=== PATIENT | male | born 1960 | race Caucasian/White ===

== ENCOUNTER 2019-04-29 11:14 | Emergency (ER) | payer BC ==
[2019-04-29 11:25] VITALS: BMI 26.6
[2019-04-29] MEDS ORDERED: KETOROLAC TROMETHAMINE 60 MG/2 ML VIAL IM ONE (11:51)
[2019-04-29] MEDS ORDERED: METOCLOPRAMIDE HCL INJECTION 10 MG/2 ML VIAL IM ONE (11:51)
[2019-04-29] MEDS ORDERED: METOCLOPRAMIDE HCL INJECTION 10 MG/2 ML VIAL ONE (12:03)
[2019-04-29] MEDS ORDERED: KETOROLAC TROMETHAMINE 60 MG/2 ML VIAL ONE (12:04)
--- NOTE | 2019-04-29 12:04 | PDOC ---
History of Present Illness - General Chief Complaint: Headache Stated Complaint: HEADACHE Time Seen by Provider: 04/29/19 11:34 History Source: Patient Exam Limitations: No Limitations - History of Present Illness Initial Comments: 04/29/19 13:08 58-year-old male presents to the emergency room with complaints of intermittent throbbing temporal and forehead pressure for the past 8 months. Patient states is followed by Dr. Chowdhury who has him on magnesium along with Motrin with no improvement. Patient states had an MRI done approximately 2 weeks ago which showed no significant findings patient states attempted to get an appoint with Dr. Khalil today but could not and so decided come to the ER for further evaluation. Timing/Duration: reports: episodic Severity: Yes: moderate Associated Symptoms: reports: other (headache) Past History - Travel Traveled outside of the country in the last 30 days: No Close contact w/someone who was outside of country & ill: No - Past Medical History Home Medications: Ambulatory Orders Erenumab-Aooe [Aimovig Autoinjector] 1 dose SQ ASDIR 04/29/19 Ibuprofen 1 tab PO TID PRN 04/29/19 Magnesium Oxide [Magnesium] 250 mg PO DAILY 04/29/19 COPD: No - Psycho Social/Smoking Cessation Hx Smoking History: Never smoked Patient Lives Alone: No Lives with/in: spouse/SO Review of Systems - Review of Systems Able to Perform ROS?: Yes Constitutional: No: Symptoms Reported HEENTM: No: Symptoms Reported Respiratory: No: Symptoms reported Cardiac (ROS): No: Symptoms Reported ABD/GI: No: Symptoms Reported : No: Symptoms Reported Musculoskeletal: No: Symptoms Reported Integumentary: No: Symptoms Reported Neurological: Yes: Headache. No: Numbness, Weakness, Dizziness Endocrine: No: Symptoms Reported Hematologic/Lymphatic: No: Symptoms Reported *Physical Exam - Vital Signs Last Vital Signs Temp Pulse Resp BP Pulse Ox 98 F 68 16 150/86 98 04/29/19 11:24 04/29/19 11:24 04/29/19 11:24 04/29/19 11:24 04/29/19 11:24 - Physical Exam General Appearance: Yes: Nourished, Appropriately Dressed. No: Apparent Distress HEENT: positive: EOMI, AARON, TMs Normal, Pharynx Normal. negative: Pale Conjunctivae Neck: positive: Supple Respiratory/Chest: positive: Lungs Clear, Normal Breath Sounds. negative: Respiratory Distress, Accessory Muscle Use Cardiovascular: positive: Regular Rhythm, Regular Rate. negative: Murmur Gastrointestinal/Abdominal: positive: Soft. negative: Tenderness Extremity: positive: Normal Inspection Integumentary: positive: Normal Color, Warm, Moist Neurologic: positive: Normal Mood/Affect, Motor Strength 5/5 (ambulatory) Medical Decision Making - Medical Decision Making 04/29/19 13:08 Chief complaint: Intermittent throbbing pressure to his forehead and catholic area for the past 5 months unrelieved with magnesium and Motrin patient states had MRI done in the [place] 2 weeks ago and out patient facility ordered by Dr. Chowdhury but was told by the neurologist it was normal. 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 Patient has no other complaints Exam: No neurofocal deficits vital signs stable Plan: IM Toradol and Reglan. if relieved, I will discharge home with Fioricet 04/29/19 13:37 Patient states feeling much better and wants to go home Discharge - Discharge Information Problems reviewed: Yes Clinical Impression/Diagnosis: Headache Condition: Improved Disposition: HOME - Follow up/Referral Referrals: Tobias Bo MD [Staff Physician] - - Patient Discharge Instructions Patient Printed Discharge Instructions: DI for Headache Additional Instructions: Take Fioricet as needed for headache. Please also follow-up with neurologist. Print Language: GREEK - Post Discharge Activity
[2019-04-29 12:26] VITALS: TEMP 98
--- NOTE | 2019-04-29 13:14 | PDOC ---
*Physical Exam - Vital Signs Last Vital Signs Temp Pulse Resp BP Pulse Ox 98.0 F 72 20 143/80 100 04/29/19 12:25 04/29/19 12:25 04/29/19 12:25 04/29/19 12:25 04/29/19 12:25 Medical Decision Making - Medical Decision Making 04/29/19 13:14 Agree with plan per SANJUANITA Del Valle Mr. Jael Barker is a 58 yo M presenting with a complaint of intermittent throbbing temporal and forehead pressure for the past 8 months. He is seen by Neurology, is on magnesium and Motrin with no improvement. Pt given Toradol and Reglan Pt improved Agree with history, physician and plan per SANJUANITA Del Valle D/c to home Follow up with Neuro Discharge - Discharge Information Problems reviewed: Yes Clinical Impression/Diagnosis: Headache Qualifiers: Headache type: unspecified Headache chronicity pattern: unspecified pattern Intractability: not intractable Qualified Code(s): R51 - Headache Condition: Improved Disposition: HOME - Additional Discharge Information Prescriptions: Acetaminophen/Caffeine/Butalb [Fioricet -] 1 tab PO TID PRN #21 tablet MDD 3 PRN Reason: Headache - Follow up/Referral Referrals: Ynoas Clemons [Primary Care Provider] - Tobias Bo MD [Staff Physician] - - Patient Discharge Instructions Patient Printed Discharge Instructions: DI for Headache Additional Instructions: Take Fioricet as needed for headache. Please also follow-up with neurologist. Print Language: LIBERIAN - Post Discharge Activity
[2019-04-29 13:46] VITALS: BP 129/87; PULSE 64
== END 2019-04-29 13:46 | disposition home or self-care (01) ==
LOC: JER 11:14
PROC: 3E0233Z Introduction of Anti-inflammatory into Muscle, Percutaneous Approach (ICD-10-PCS; principal; 2019-04-29)
PROC: 3E023GC Introduction of Other Therapeutic Substance into Muscle, Percutaneous Approach (ICD-10-PCS; 2019-04-29)
DX: R51 Headache (principal)
CPT/HCPCS: 99282-25

== ENCOUNTER 2019-09-13 16:21 | Emergency (ER) | payer BC ==
[2019-09-13 16:30] VITALS: BMI 26.6
[2019-09-13] MEDS ORDERED: SODIUM CHLORIDE 1,000 ML IV STA (16:30)
[2019-09-13] MEDS ORDERED: ACETAMINOPHEN 1000 MG/100 ML VIAL (NON FORMULARY) IVPB ONE (16:30)
[2019-09-13] MEDS ORDERED: METOCLOPRAMIDE HCL INJECTION 10 MG/2 ML VIAL IVPB ONE (16:30)
--- NOTE | 2019-09-13 16:31 | PDOC ---
Rapid Medical Evaluation Time Seen by Provider: 09/13/19 16:28 Medical Evaluation: Allergies Allergy/AdvReac Type Severity Reaction Status Date / Time No Known Allergies Allergy Verified 09/13/19 16:26 09/13/19 16:28 Pt presents for evaluation for a headache since Thursday. He states the pain has gradually gotten worse since then. Exam: pt appears uncomfortable, tearful. No gross neurodeficits. Able to touch chin to chest Orders: Labs, head CT, meds Pt to proceed to the ER for further evaluation Discharge Disposition - Diagnosis Headache Qualifiers: Headache type: unspecified Headache chronicity pattern: acute headache Intractability: not intractable Qualified Code(s): R51 - Headache - Referrals - Patient Instructions - Post Discharge Activity
[2019-09-13] MEDS ORDERED: METOCLOPRAMIDE HCL INJECTION 10 MG/2 ML VIAL ONE (17:40)
[2019-09-13] MEDS ORDERED: ACETAMINOPHEN INJECTION 100 ML IVPB ONE (17:40)
--- NOTE | 2019-09-13 18:04 | PDOC ---
Documentation entered by Nury Santos SCRIBE, acting as scribe for Alexandria Gillespie MD. Alexandria Gillespie MD: This documentation has been prepared by the Tom corral Nirvannie, SCRIBE, under my direction and personally reviewed by me in its entirety. I confirm that the documentation accurately reflects all work, treatment, procedures, and medical decision making performed by me. Attending Attestation - Resident Resident Name: Isaac Durand - ED Attending Attestation I have performed the following: I have examined & evaluated the patient, The case was reviewed & discussed with the resident, I agree w/resident's findings & plan, Exceptions are as noted - HPI HPI: 09/13/19 18:49 The patient is a 58 year old male, with no significant past medical history, who presents to the emergency department with 3 days of a progressively worsening waxing and waning headache. He denies any recent chest pain or shortness of breath. Allergies: NKDA - Physicial Exam PE: 09/13/19 20:22 Alert and conversant Swedish-speaking 58-year-old male presents with intermittent worsening headaches over several months Head is normocephalic and atraumatic Eyes pupils are equal reactive to light and accommodation Neck no JVD, supple Lungs clear to auscultation bilaterally CVS regular rate and rhythm S1-S2 Abdomen nontender Skin warm and dry Extremities full range of motion, motor strength 5 out of 5 bilaterally Neuro alert and oriented x3, ambulatory - Medical Decision Making 09/13/19 20:58 CAT scan of the head without contrast showed -Multifocal chronic sinusitis. - There was a focal dehiscence of the posterior wall of the left sphenoid sinus. Dr. Chance Adams was contacted and recommended further imaging studies and MRI was ordered 09/14/19 00:05 MRI Brain: IMPRESSION: Extensive mucosal thickening and inspissated mucus seen bilaterally throughout the paranasal sinuses. Complete filling of the left sphenoid sinus possibly from trapping in the sphenoethmoid ostium. The study is otherwise unremarkable. Despite these extensive inflammatory changes within the sinuses, there is no clear evidence of penetration beyond the mucosal surfaces of the sinuses into the surrounding soft tissues of the orbits, or through the cribriform plates, through the posterior wall of the frontal sinuses, or involvement of the cavernous sinuses. No evidence of osteolytic disease or osteomyelitis. No evidence of dural enhancement, or any evidence of epidural or subdural inflammation, subarachnoid leptomeningeal enhancement or of an intra-axial enhancing lesion within the brain. Read by: Duke Bourgeois MD. 09/14/19 00:[address] Chance Adams and the pt miladys be placed on antibiotics , flonase and will be referred to ENT
--- NOTE | 2019-09-13 18:37 | PDOC ---
History of Present Illness - General Chief Complaint: Headache Stated Complaint: HEADACHE Time Seen by Provider: 09/13/19 16:28 History Source: Patient Exam Limitations: No Limitations - History of Present Illness Initial Comments: 09/13/19 18:18 58 yo male no sig pmh presents to the ED for a worsening severe DUMONT for 3 days. Pt states he has a waxing and waning DUMONT over the past 5 months. DUMONT is located bilateral frontal region, worsening over the past 3 days, severe and described as sharp. Denies associated symptoms such as N/V/F/C, weakness or sensory deficits on 1 side of his body, congestion, confusion, neck pain/stiffness, changes in vision, CP, SOB, abdominal pain, back pain, changes in bowel or bladder habits Past History - Past Medical History Allergies/Adverse Reactions: Allergies Allergy/AdvReac Type Severity Reaction Status Date / Time No Known Allergies Allergy Verified 09/13/19 16:26 Home Medications: Ambulatory Orders Acetaminophen/Caffeine/Butalb [Fioricet -] 1 tab PO TID PRN #21 tablet MDD 3 11/12 Erenumab-Aooe [Aimovig Autoinjector] 1 dose SQ ASDIR 04/29/19 Ibuprofen 1 tab PO TID PRN 04/29/19 Magnesium Oxide [Magnesium] 250 mg PO DAILY 04/29/19 COPD: No Other medical history: headache, - Immunization History Immunization Up to Date: No - Psycho Social/Smoking Cessation Hx Smoking History: Never smoked Have you smoked in the past 12 months: No Hx Alcohol Use: No Drug/Substance Use Hx: No Review of Systems - Review of Systems Constitutional: Yes: See HPI HEENTM: Yes: See HPI Respiratory: Yes: See HPI Cardiac (ROS): Yes: See HPI ABD/GI: Yes: See HPI : Yes: See HPI Musculoskeletal: Yes: See HPI Integumentary: Yes: See HPI Neurological: Yes: See HPI *Physical Exam - Vital Signs Last Vital Signs Temp Pulse Resp BP Pulse Ox 98.4 F 78 20 149/87 100 09/13/19 16:26 09/13/19 17:45 09/13/19 17:45 09/13/19 17:45 09/13/19 17:45 - Physical Exam General Appearance: Yes: Nourished, Appropriately Dressed HEENT: positive: EOMI, AARON, Normal ENT Inspection, TMs Normal Neck: positive: Supple. negative: Rigid, Carotid bruit, Tender lateral, Tender midline Respiratory/Chest: positive: Lungs Clear, Normal Breath Sounds. negative: Respiratory Distress, Accessory Muscle Use, Crackles, Rales, Rhonchi, Stridor, Wheezing Cardiovascular: positive: Regular Rhythm, Regular Rate, S1, S2. negative: Edema , JVD, Murmur Vascular Pulses: Dorsalis-Pedis (R): 4+, Doralis-Pedis (L): 4+ Gastrointestinal/Abdominal: positive: Flat, Soft. 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 Ambulates with normal gait). negative: Facial Droop, Numbness, Sensory Deficit, Finger to Nose (normal), Confused ED Treatment Course - LABORATORY CBC & Chemistry Diagram: 09/13/19 17:45 09/13/19 17:45 - Medications Given in the ED: ED Medications Discontinued Medications Generic Name Dose Route Start Last Admin Trade Name Prashanthq PRN Reason Stop Dose Admin Diphenhydramine HCl 12.5 mg 09/13/19 16:30 09/13/19 18:03 Benadryl Injection - IVPB 09/13/19 16:31 12.5 mg ONCE ONE Administration Sodium Chloride 1,000 mls @ 1,000 mls/hr 09/13/19 16:30 09/13/19 17:45 Normal Saline - IV 09/13/19 17:29 1,000 mls/hr ASDIR STA Administration Metoclopramide HCl 10 mg 09/13/19 16:30 09/13/19 17:45 Reglan Injection - IVPB 09/13/19 16:31 10 mg ONCE ONE Administration Medical Decision Making - Medical Decision Making 09/13/19 19:24 58 yo male no sig pmh presents to the ED for a worsening severe DUMONT for 3 days. Pt states he has a waxing and waning DUMONT over the past 5 months. DUMONT is located bilateral frontal region, worsening over the past 3 days, severe and described as sharp. Denies associated symptoms such as N/V/F/C, weakness or sensory deficits on 1 side of his body, congestion, confusion, neck pain/stiffness, changes in vision, CP, SOB, abdominal pain, back pain, changes in bowel or bladder habits vitals WNL Head CT shows likely chronic sinusitis with focal dehiscence into sphenoid bone. Discussed case with ENT Dr. Adams, he reviewed images and concerned for mass/infection extending into the brain. Recommends CT sinus with contrast and MRI Sinus with contrast (order will be MRI orbits due to no sinus protocol) . Dr. Adams requests a call back with MRI and CT report for further care and guidance S/O to night team for labs and follow up imaging along with disposition Discharge - Discharge Information Problems reviewed: Yes Clinical Impression/Diagnosis: Headache Qualifiers: Headache type: unspecified Headache chronicity pattern: acute headache Intractability: not intractable Qualified Code(s): R51 - Headache - Follow up/Referral - Patient Discharge Instructions - Post Discharge Activity
[2019-09-13 18:40] LABS: BASO % 0.8 % (0-2.0); EOS % 2.4 % (0-4.5); HEMATOCRIT 47.3 % (35.4-49); HEMOGLOBIN 16.1 GM/dL (11.7-16.9); LYMPH % 34.1 % (8-40); MCHC 34.1 g/dl (32.0-35.9); MEAN PLT VOLUME 9.5 fl (7.5-11.1); MONO % 7.8 % (3.8-10.2); NEUT % 54.9 % (42.8-82.8); PLATELET COUNT 213 K/MM3 (134-434); RBC 5.37 M/mm3 (4.00-5.60); RDW 12.9 % (11.9-15.9); WHITE BLOOD COUNT 5.8 K/mm3 (4.0-10.0)
[2019-09-13 18:51] LABS: INR 0.98 (0.83-1.09); PROTHROMBIN TIME (PATIENT) 11.6 SEC (9.7-13.0)
[2019-09-13 19:12] LABS: BILIRUBIN,TOTAL 1.2 mg/dL (0.2-1); BLOOD UREA NITROGEN 10.7 mg/dL (7-18); CALCIUM 9.2 mg/dL (8.5-10.1); CREATININE 0.9 mg/dL (0.55-1.3); POTASSIUM 3.8 mmol/L (3.5-5.1); TOT PROT 7.3 g/dl (6.4-8.2)
--- NOTE | 2019-09-13 20:38 | PDOC ---
*Physical Exam - Vital Signs Last Vital Signs Temp Pulse Resp BP Pulse Ox 98.4 F 78 20 149/87 100 09/13/19 16:26 09/13/19 17:45 18 17:45 09/13/19 17:45 09/13/19 17:45 ED Treatment Course - LABORATORY CBC & Chemistry Diagram: 09/13/19 17:45 09/13/19 17:45 - ADDITIONAL ORDERS Additional order review: Laboratory Results 09/13/19 09/13/19 17:45 17:45 PT with INR 11.60 INR 0.98 Sodium 135 L Potassium 3.8 Chloride 102 Carbon Dioxide 25 Anion Gap 8 BUN 10.7 Creatinine 0.9 Est GFR (CKD-EPI)AfAm 110.27 Est GFR (CKD-EPI)NonAf 95.14 Random Glucose 120 H Calcium 9.2 Total Bilirubin 1.2 H AST 22 ALT 20 Alkaline Phosphatase 97 Total Protein 7.3 Albumin 4.0 09/13/19 17:45 RBC 5.37 MCV 88.0 MCHC 34.1 RDW 12.9 MPV 9.5 Neutrophils % 54.9 Lymphocytes % 34.1 Monocytes % 7.8 Eosinophils % 2.4 Basophils % 0.8 - Medications Given in the ED: ED Medications Discontinued Medications Generic Name Dose Route Start Last Admin Trade Name Freq PRN Reason Stop Dose Admin Acetaminophen 1,000 mg 09/13/19 16:30 09/13/19 18:20 Ofirmev Injection - IVPB 09/13/19 16:31 1,000 mg ONCE ONE Administration Diphenhydramine HCl 12.5 mg 09/13/19 16:30 09/13/19 18:03 Benadryl Injection - IVPB 09/13/19 16:31 12.5 mg ONCE ONE Administration Sodium Chloride 1,000 mls @ 1,000 mls/hr 09/13/19 16:30 18 17:45 Normal Saline - IV 09/13/19 17:29 1,000 mls/hr ASDIR STA Administration Metoclopramide HCl 10 mg 09/13/19 16:30 18 17:45 Reglan Injection - IVPB 09/13/19 16:31 10 mg ONCE ONE Administration Medical Decision Making - Medical Decision Making Patient signed out by Dr. Durand 58 yo male no sig pmh presents to the ED for a worsening severe DUMONT for [address] head with concerning findings : " Version Patient Name: Rajwinder Luther : 1960 ID: [id number] Study Date: 13-Sep-2019 16:53 Rachel Hinkle Name: RAJWINDER LUTHER DEPARTMENT OF RADIOLOGY Phys: Indu Martínez LEONARDO : 1960 Age: 58 Sex: M [facility] Acct: [id number] Loc: [address] Exam Date: 09/13/19 Status: PRE ER [place] [address] Unit Number: [id number] EXAM#: TYPE/EXAM: RESULT: [id number] CT/HEAD CT WITHOUT CONTRAST Cranial CT without contrast Clinical information: headache, evaluate for bleed Multiplanar imaging was performed. Intravenous contrast was not administered. No prior imaging studies are available at this facility for direct comparison. No intraparenchymal hemorrhage is seen. There is no CT evidence of acute subarachnoid hemorrhage. Correlate clinically. No extra-axial fluid collection is noted. There is no obvious mass lesion on noncontrast imaging. No discrete infarct is noted with the limitations of CT. Several punctate bilateral frontotemporal calcifications are seen. The ventricles and cisterns appear unremarkable. No calvarial defect is noted. There is complete opacification of the left sphenoid sinus with associated wall thickening. There is also increased density within the sphenoid sinus probably due to inspissated secretions. Focal absence of the posterior wall of the left sphenoid sinus is noted. There is mild to moderate mucosal thickening within the right sphenoid sinus as well as moderate bilateral ethmoid and moderate right frontal mucosal thickening consistent with chronic sinusitis. Impression: No CT evidence of acute intracranial pathology. Multifocal chronic sinusitis is seen as noted above. There is focal dehiscence of the posterior wall of the left sphenoid sinus. ENT consultation is suggested, nonemergent versus emergent as clinically indicated. Reported By: Willy Black MD 09/13/19 1712 " ENT aware and to be called back with results Pending MRI and CT sinuses 09/13/19 20:37 MRI: "EXAM#: TYPE/EXAM: RESULT: [id number] MRI/ORBIT/FACE/NECK MRI W CONTR Rule out extension of sinus mass into the brain CT scan face/orbits/neck without and following intravenous contrast. The planar T1/T2 weighted axial, coronal and sagittal images of the head including the orbits as well as postcontrast T1 weighted axial, coronal and sagittal images were obtained. Compared to prior CT scan of the head dated 09/13/2019 There is mild volume loss and ventricular prominence. No mass lesion, acute infarct or intracranial hemorrhage are identified. Both orbits appear unremarkable. There is moderate mucoperiosteal thickening in the right maxillary antrum and almost total opacification of the left. There is also almost total opacification of the ethmoid air cells and partial opacification of the frontal sinus, mainly on the right. Mild mucoperiosteal thickening in right side of the sphenoid sinus and almost total opacification of the left. Extension of the left posterior sphenoid sinus wall into the clivus with marked thinning/dehiscence of its posterior wall is again seen. Opacification of the sphenoid sinus is reaching the the adjacent rule out that appears to be minimally and slightly bulging posteriorly on the sagittal images without extension into the cavernous sinus and sella turcica and without evidence of a collection/extra-axial abscess. Note is made of a partially empty sella turcica. Otherwise, no mass lesion, acute infarct or abnormal intracranial enhancement are identified. Flow voids are present within the central intracranial arterial circulation. Both orbits appear unremarkable. No suspicious bone marrow abnormal signal is identified IMPRESSION: Pansinusitis, as described above with extension of the left sphenoid sinus into the clivus and there is significant thinning/dehiscence of its posterior wall resulting in likely minimal thickening of the adjacent dura without evidence of a collection or intracranial abscess. Otherwise, no mass lesion, acute infarct, intracranial hemorrhage or abnormal intracranial enhancement are identified. A preliminary report was forwarded by the [facility] service, IMAGING POSITION CLERK Reported By: Linda Parson MD 09/14/19 1046" Discussed case with Dr. Adams Patient to be treated as a sinusitis augmentin flonase no contraindication for toradol Toradol ordered 09/14/19 00:30 Patient states headache is much better Work note Prescriptions sent to pharmacy ENT follow up Return precautions Stable for discharge Discharge - Discharge Information Problems reviewed: Yes Clinical Impression/Diagnosis: Headache Qualifiers: Headache type: unspecified Headache chronicity pattern: acute headache Intractability: not intractable Qualified Code(s): R51 - Headache Condition: Stable Disposition: HOME - Additional Discharge Information Prescriptions: Acetaminophen [Tylenol -] 500 mg PO Q6H PRN #60 tablet PRN Reason: Headache Amoxicillin/Potassium Clav [Augmentin 875-125 Tablet] 1 each PO BID #14 tablet Fluticasone Prop 0.05% Nasal [Flonase -] 1 - 2 spray NS BID #1 spray.pump Ibuprofen [Motrin -] 400 mg PO Q6H PRN #60 tablet PRN Reason: Headache - Follow up/Referral Referrals: Chance Adams MD [Staff Physician] - [facility] [place] [facility] [place] [Provider Group] - Patient Discharge Instructions Patient Printed Discharge Instructions: DI for Sinusitis Additional Instructions: You came into the emergency department for headache. Imaging did not indicate acute pathology. You were given a copy of all the reports to show your doctor. We have referred you to an ENT specialist. Your workup is not complete until you do so. Call and make an appointment at the [facility] [place] provided Follow-up with a primary care provider within 72 hours to discuss this ED visit and to further evaluate your symptoms. Your workup is not complete until you do so. You have been referred to the [facility] in case you do not have a primary care doctor. Call and make an appointment at the [facility] [place] provided Prescriptions sent to your pharmacy. Take as instructed You can also take [id number] tylenol and motrin for pain. Follow the instructions on the medication bottle. Immediate medical attention is required if have: chest pain, palpitations, shortness of breath, severe headaches, changes in vision, focal numbness or weakness, severe abdominal pain, black tarry stool, or any new or concerning symptoms. If you think you are having an emergency, call for emergency medical services or present to the emergency department right away. === Llegaste al departamento de emergencias por dolor de giselle. Las imgenes no indican patologa aguda. Recibi maria elena copia de todos los informes para mostrarle a rivera mdico. Lo hemos referido a un especialista ENT. Rivera trabajo no est completo hasta que lo jess. Llame y jess maria elena henry al nmero provisto Jess un seguimiento con un proveedor de atencin primaria dentro de las 72 horas para analizar esta visita al servicio de urgencias y evaluar mejor gena sntomas. Rivera trabajo no est completo hasta que lo jess. Lo garner derivado a la [place] Ricardo en saba de que no tenga un mdico de atencin primaria. Llame y jess maria elena henry al nmero provisto Recetas enviadas a rivera farmacia. Tmelo segn las instrucciones. Tambin puede merrill tylenol y motrin de venta suzy para el dolor. Siga las instrucciones en la botella del medicamento. Se requiere atencin mdica inmediata si tiene: dolor en el pecho, palpitaciones , falta de aliento, rafael de giselle severos, cambios en la visin, entumecimiento o debilidad focal, dolor abdominal manny, heces alquitranadas negras o cualquier sntoma nuevo o preocupante. Si sam que est teniendo maria elena emergencia, llame a los servicios mdicos de emergencia o presntese en el departamento de emergencias de inmediato. - Post Discharge Activity Work/Back to School Note: Back to Work
[2019-09-13 23:10] VITALS: TEMP 98.1
[2019-09-14] MEDS ORDERED: KETOROLAC TROMETHAMINE 30 MG/1 ML VIAL IVPUSH ONE (00:02)
[2019-09-14] MEDS ORDERED: AMOX TR/POT CLAV 875MG/125MG TABLETS (FP) PO ONE (00:02)
[2019-09-14] MEDS ORDERED: KETOROLAC TROMETHAMINE 30 MG/1 ML VIAL ONE (00:13)
[2019-09-14] MEDS ORDERED: AMOX TR/POT CLAV 875MG/125MG TABLETS (FP) ONE (00:13)
[2019-09-14 01:49] VITALS: BP 136/80; PULSE 72
--- NOTE | 2019-09-14 11:21 | EKG ---
Test Reason : Blood Pressure : / mmHG Vent. Rate : 074 BPM Atrial Rate : 074 BPM P-R Int : 164 ms QRS Dur : 078 ms QT Int : 388 ms P-R-T Axes : 044 042 053 degrees QTc Int : 430 ms NORMAL SINUS RHYTHM LEFT ATRIAL ENLARGEMENT OTHERWISE NORMAL ECG Confirmed by MD LISA, REENA ([id number]) on 09/14/2019 11:21:43 AM Referred By: Confirmed By:REENA GONZALEZ MD
== END 2019-09-14 02:05 | disposition home or self-care (01) ==
LOC: JER 16:21
PROC: 3E033NZ Introduction of Analgesics, Hypnotics, Sedatives into Peripheral Vein, Percutaneous Approach (ICD-10-PCS; principal; 2019-09-13)
PROC: 3E0333Z Introduction of Anti-inflammatory into Peripheral Vein, Percutaneous Approach (ICD-10-PCS; 2019-09-13)
PROC: 3E033GC Introduction of Other Therapeutic Substance into Peripheral Vein, Percutaneous Approach (ICD-10-PCS; 2019-09-13)
PROC: 3E033GC Introduction of Other Therapeutic Substance into Peripheral Vein, Percutaneous Approach (ICD-10-PCS; 2019-09-13)
DX: J01.90 Acute sinusitis, unspecified (principal)
CPT/HCPCS: 36415; 70450-TC; 70487-TC; 70542-TC; 80053; 85025; 85610; 93005; 93010; 99285-25; J0131; J7030; Q9967